=== PATIENT | female | born 1935 | race Caucasian/White ===

== ENCOUNTER 2016-06-09 15:35 | Inpatient (IN) | payer MEDICARE, MEDICAID ==
[2016-06-09 16:01] VITALS: BP 139/63
[2016-06-09] MEDS ORDERED: BIMATOPROST OP SCH (21:00)
[2016-06-09] MEDS: INSULIN ASPART SLIDING SCALE 100 UNITS/ML UNIT SUBQ SCH (21:01)
[2016-06-10] MEDS: Levothyroxine 0.1 Mg Tab PO SCH (06:50)
[2016-06-10] MEDS: INSULIN ASPART SLIDING SCALE 100 UNITS/ML UNIT SUBQ SCH ×4 (06:51→21:05)
[2016-06-10] MEDS ORDERED: Insulin Detemir 100 units/mL 10mL Vial SUBQ SCH ×2 (07:30→09:00)
[2016-06-10] MEDS: Pantoprazole 40 mg EC Tab PO SCH (08:41)
[2016-06-10] MEDS: Aspirin 81mg Chewable Tab PO SCH (08:41)
[2016-06-10] MEDS: Benztropine 1 MG TAB PO SCH ×2 (08:41→16:47)
[2016-06-10] MEDS: Insulin Detemir 100 units/mL 10mL Vial SUBQ SCH (08:49)
--- NOTE | 2016-06-11 02:24 | History & Physical ---
HISTORY OF PRESENT ILLNESS: The patient is an 80-year-old female known to me, [facility] CURRENT MEDICAL PROBLEMS: Include pneumonia, COPD, congestive heart failure, hypertension, diabetes mellitus, diabetic angiopathy and neuropathy, nephropathy, hypothyroidism, coronary artery disease, peptic ulcer disease, gastritis, arthritis, osteoporosis and glaucoma. SOCIAL HISTORY: No history of smoking or alcohol abuse. FAMILY HISTORY: Noncontributory. REVIEW OF SYSTEMS: The patient is on oxygen. The patient is short of breath. Cough is present. No nausea, no vomiting, no abdominal pain, no melena and no hematochezia. PHYSICAL EXAMINATION: GENERAL: Average female, in [id number] amount of respiratory distress. VITAL SIGNS: Include blood pressure 110/70, heart rate 80 and respiration rate of 18. SKIN: Showed no obvious cellulitis. HEENT: Normal conjunctivae. NECK: Supple. LUNGS: Show bilateral rhonchi as well as crepitation. No bronchial breathing. CARDIOVASCULAR: S1 and S2 is present. ABDOMEN: Soft, minimal epigastric tenderness. Bowel sounds appeared good. EXTREMITIES: Show arthritis. NEUROLOGIC: The patient has no focal motor deficit. Current medical diagnoses as I dictated above. MEDICATIONS: Current medicines include the patient has Lasix, Solu-Medrol 40 mg daily and sliding scale. The patient is on Levemir 20 units daily. The patient is on glaucoma eyedrops, Synthroid 100 mcg daily, lisinopril 2.5 mg daily, Glucophage 500 mg twice a day, Protonix 40 mg daily. The patient is on tramadol 50 mg 3 times a day and Restoril 30 mg p.o. at bedtime. Rest of the medicines as per psychiatrist. Thank you very much. JOB# [id number]
--- NOTE | 2016-06-11 06:01 | Psychosocial Evaluation ---
PHYSICIAN: Dr. Gutierrez. ____: Dr. Goldberg. CHIEF COMPLAINT: "Hearing voices telling her to hurt herself." HISTORY OF PRESENT ILLNESS: The patient is an 80-year-old female who was admitted to the hospital on a 5150 hold because of auditory hallucination and the patient has been hearing voices telling her to kill herself. The patient has been hearing these voices for the last 2 weeks. The patient also has been annoyed by the voices. She recognized that one of those voices is her brother. The patient does not want to kill herself, but because of the voices she has been anxious and nervous and afraid that she is going to hurt herself or kill herself. The patient has been frustrated and has been upset because of the voices. She also has feeling impairment and communication ____ through writing. PAST PSYCHIATRIC HISTORY: Not known, but the patient seems to have history of psychosis and treatment for the psychosis in the past. PAST MEDICAL HISTORY: The patient has history of congestive heart failure, COPD, diabetes mellitus that is noninsulin dependent and hypertension and hearing impairment. The patient also has history of pneumothorax. FAMILY PSYCHIATRIC HISTORY: Not known. CHEMICAL DEPENDENCY HISTORY: The patient denies. SOCIAL HISTORY: The patient does not drink alcohol or use any street drugs. She lives in [facility]. She has no known legal issues and no known history of abuse. ALLERGIES: No known allergies. MENTAL STATUS EXAMINATION: The patient appears her stated age. Deaf and communicates with her through writing. The patient admits to auditory hallucinations, but denies visual hallucinations or delusions. The patient denies suicidal or homicidal ideations. The patient is alert and oriented to time, place, person, and situation. Intact immediate, recent and the remote memories. Fair insight. Fair judgment. ASSESSMENT: PRIMARY DIAGNOSIS: Unspecified psychosis. MEDICAL DIAGNOSES: 1. Congestive heart failure. 2. Diabetes mellitus. TREATMENT PLAN: We will observe the patient closely. We will start individual as well as milieu psychotherapy. We will also evaluate the use of antipsychotic medications. ESTIMATED LENGTH OF STAY: 7-10 days. PATIENT'S STRENGTHS AND WEAKNESSES: The patient's strength is not clear at this time. Weaknesses, her ineffective coping and her psychosis. AFTER DISCHARGE PLANS: The patient will return to [facility] with plans for outpatient treatment and followup. CRITERIA FOR DISCHARGE: The patient will not be psychotic or suicidal and will stabilize on psychotropic medications and will establish outpatient treatment plans. [facility]# [id number]
[2016-06-11] MEDS: INSULIN ASPART SLIDING SCALE 100 UNITS/ML UNIT SUBQ SCH ×3 (06:36→20:46)
[2016-06-11] MEDS: Levothyroxine 0.1 Mg Tab PO SCH (06:47)
[2016-06-11] MEDS: Albuterol/Ipratropium Neb 3 ML AERS HHN PRN ×2 (09:03→14:06)
[2016-06-11] MEDS: Insulin Detemir 100 units/mL 10mL Vial SUBQ SCH (09:09)
[2016-06-11] MEDS: Aspirin 81mg Chewable Tab PO SCH (09:10)
[2016-06-11] MEDS: Pantoprazole 40 mg EC Tab PO SCH (09:10)
[2016-06-11] MEDS: Benztropine 1 MG TAB PO SCH ×2 (09:11→16:22)
--- NOTE | 2016-06-12 00:14 | Progress Notes ---
HISTORY OF PRESENT ILLNESS: An 80-year-old female admitted to the hospital on a 5150 hold, hallucinations, going to hurt herself, not jorge for safety. On [id number], the patient is still attesting to voices, still not jorge for safety, depressed and withdrawn, very distraught about the voices. Multiple medical problems including CHF, COPD, hearing impairment. The patient states she is sleeping fairly well, but remains hopeless and despairing. ASSESSMENT: The patient is still suicidal, still psychotic with voices. PLAN: We will continue to adjust medications. We will monitor closely for any undue side effects. Due to the severity of the patient's symptoms, she is not safe for a lower level of care at this time. JOB# [id number]
[2016-06-12] MEDS: INSULIN ASPART SLIDING SCALE 100 UNITS/ML UNIT SUBQ SCH ×6 (06:39→20:41)
[2016-06-12] MEDS: Levothyroxine 0.1 Mg Tab PO SCH (06:39)
[2016-06-12] MEDS: Pantoprazole 40 mg EC Tab PO SCH (08:41)
[2016-06-12] MEDS: Aspirin 81mg Chewable Tab PO SCH (08:41)
[2016-06-12] MEDS: Benztropine 1 MG TAB PO SCH ×2 (08:42→16:55)
[2016-06-12] MEDS: Insulin Detemir 100 units/mL 10mL Vial SUBQ SCH (16:09)
[2016-06-13] MEDS: Levothyroxine 0.1 Mg Tab PO SCH (06:33)
[2016-06-13] MEDS: INSULIN ASPART SLIDING SCALE 100 UNITS/ML UNIT SUBQ SCH ×4 (06:33→21:13)
[2016-06-13] MEDS: Benztropine 1 MG TAB PO SCH ×2 (09:45→16:55)
[2016-06-13] MEDS: Pantoprazole 40 mg EC Tab PO SCH (09:46)
[2016-06-13] MEDS: Aspirin 81mg Chewable Tab PO SCH (09:46)
[2016-06-13] MEDS: Insulin Detemir 100 units/mL 10mL Vial SUBQ SCH (09:58)
--- NOTE | 2016-06-13 20:38 | Progress Notes ---
SUBJECTIVE: The patient seen, chart reviewed, discussed with staff. The patient is continuing to attest to voices, stating that voices are commanding her. She still notes that she feels suicidal. She is not jorge for safety. The patient is depressed, overwhelmed, plagued and distressed by the hallucinations and voices that are commanding in nature. She remains withdrawn, depressed, requires prompting to eat, requires assistance with eating, isolative, withdrawn, despairing. ASSESSMENT: The patient is despairing, hopeless, still with hallucinations and psychosis, still suicidal. PLAN: Initiate low-dose Haldol. Continue Seroquel for now. JOB# [id number]
--- NOTE | 2016-06-14 02:27 | Progress Notes ---
SUBJECTIVE: This is an 80-year-old female, currently continuing to attest to hallucinations, still with voices, still not jorge for safety, still endorsing suicidal ideations, fantasizing about self of harm, still endorsing depressed mood. Pessimistic and negative thoughts. Sleeping fairly well, eating well. She is withdrawn, isolative, appears depressed, hopeless, and despairing. ASSESSMENT: The patient with continued voices, still despairing, hopeless. PLAN: We will continue to monitor given recent dose initiation of Haldol. We will continue with current dose and titrate over the next few days. [facility]# [id number]
[2016-06-14] MEDS: Levothyroxine 0.1 Mg Tab PO SCH (06:39)
[2016-06-14] MEDS: INSULIN ASPART SLIDING SCALE 100 UNITS/ML UNIT SUBQ SCH ×4 (06:39→20:51)
[2016-06-14] MEDS: Aspirin 81mg Chewable Tab PO SCH (10:00)
[2016-06-14] MEDS: Benztropine 1 MG TAB PO SCH ×2 (10:00→16:35)
[2016-06-14] MEDS: Pantoprazole 40 mg EC Tab PO SCH (10:00)
[2016-06-14] MEDS: Insulin Detemir 100 units/mL 10mL Vial SUBQ SCH (10:02)
--- NOTE | 2016-06-14 21:53 | Progress Notes ---
SUBJECTIVE: The patient was seen, chart reviewed, and discussed with staff. The patient remains symptomatic, states that she is, "very, very depressed, still attesting to voices, still distressed by the voices, hopeless, despairing and melancholic. The patient is noting, however, on a positive note that voices are going down "a little bit." Still attesting to suicidal thoughts, not jorge for safety. She remains depressed and withdrawn. Sleeping fairly well and eating well. ASSESSMENT: The patient remains symptomatic, still suicidal, still with voices, not jorge for safety. PLAN: Continue to monitor. We will adjust medications. The patient is not safe for a lower level of care. [facility]# [id number]
[2016-06-15] MEDS: INSULIN ASPART SLIDING SCALE 100 UNITS/ML UNIT SUBQ SCH ×4 (06:36→20:39)
[2016-06-15] MEDS: Levothyroxine 0.1 Mg Tab PO SCH (09:00)
[2016-06-15] MEDS: Aspirin 81mg Chewable Tab PO SCH (09:00)
[2016-06-15] MEDS: Benztropine 1 MG TAB PO SCH ×2 (09:00→16:24)
[2016-06-15] MEDS: Insulin Detemir 100 units/mL 10mL Vial SUBQ SCH (09:01)
[2016-06-15] MEDS: Pantoprazole 40 mg EC Tab PO SCH (09:05)
[2016-06-15] MEDS: Magnesium Hydroxide (MOM) 30 mL UDC PO PRN (18:00)
[2016-06-16] MEDS: INSULIN ASPART SLIDING SCALE 100 UNITS/ML UNIT SUBQ SCH ×4 (06:43→20:41)
[2016-06-16] MEDS: Levothyroxine 0.1 Mg Tab PO SCH (06:47)
[2016-06-16] MEDS: Aspirin 81mg Chewable Tab PO SCH (08:57)
[2016-06-16] MEDS: Pantoprazole 40 mg EC Tab PO SCH (08:58)
[2016-06-16] MEDS: Benztropine 1 MG TAB PO SCH ×2 (09:00→16:13)
[2016-06-16] MEDS: Insulin Detemir 100 units/mL 10mL Vial SUBQ SCH (09:01)
[2016-06-16] MEDS: Magnesium Hydroxide (MOM) 30 mL UDC PO PRN (10:36)
--- NOTE | 2016-06-16 12:03 | Progress Notes ---
SUBJECTIVE: The patient seen, chart reviewed, discussed with staff. The patient is still symptomatic, still depressed, attesting to voices, still suicidal, not jorge for safety. Still she is stating that she feels desperate, hopeless despairing. On a positive note, she is more interactive, more __directable__, somewhat brighter affect, sleeping well, eating with prompting. ASSESSMENT: The patient is still symptomatic, still endorsing strong hallucinations, still suicidal, still at high risk for self-harm, not jorge for safety. PLAN: Continue to titrate medications, given recent dose escalation of Haldol. We will continue to monitor. We will likely start to decrease Seroquel. [facility]# [id number] MTDD
--- NOTE | 2016-06-17 02:18 | Progress Notes ---
Case was discussed with staff of the patient and reviewed records. Covering for Dr. Gutierrez. This is an 80-year-old female who was admitted on 06/09/2016. She was hearing voices, telling her to harm herself. The patient has been hearing these voices for the past 2 weeks prior to admission. She has been annoyed by the voices. She recognized that one of that voice is of her brother. The patient does not want to kill herself, but because of the voices, she has been anxious, nervous and afraid that she is going to harm herself. The patient has been on Haldol 1 mg twice a day, Seroquel ____ mg at bedtime, ____ 30 mg at bedtime, trazodone 50 mg at bedtime with no side effects, no sedation, no nausea and she continues to be confused and paranoid. Reports that voices are not as prominent and no side effects with the medication, no sedation, no nausea and no extrapyramidal symptoms. I will continue to work with the patient in group therapy, milieu therapy and adjust medication as needed. JOB# [id number]
[2016-06-17] MEDS: INSULIN ASPART SLIDING SCALE 100 UNITS/ML UNIT SUBQ SCH ×4 (06:40→21:25)
[2016-06-17] MEDS: Levothyroxine 0.1 Mg Tab PO SCH (06:40)
[2016-06-17] MEDS: Pantoprazole 40 mg EC Tab PO SCH (08:57)
[2016-06-17] MEDS: Insulin Detemir 100 units/mL 10mL Vial SUBQ SCH (08:58)
[2016-06-17] MEDS: Benztropine 1 MG TAB PO SCH ×2 (09:01→16:24)
[2016-06-17] MEDS: Aspirin 81mg Chewable Tab PO SCH (09:01)
--- NOTE | 2016-06-18 05:56 | Progress Notes ---
Covering for Dr. Gutierrez. Case discussed with staff of the patient, reviewed records. The patient continues to be internally preoccupied, psychotic, continues to need redirection, continues to have poor insight ____ however, she is not isolating as much; she was able to go to the dining room today and participate. She is compliant with the medication with no side effects, no sedation, no nausea. She is also on antibiotic Cipro, ____ no side effects to the medication or sedation, no nausea, no extrapyramidal symptoms. We will continue with outpatient group therapy, milieu therapy, adjust the medication as needed. JOB# [id number]
[2016-06-18] MEDS: Levothyroxine 0.1 Mg Tab PO SCH (06:33)
[2016-06-18] MEDS: INSULIN ASPART SLIDING SCALE 100 UNITS/ML UNIT SUBQ SCH ×4 (06:38→20:34)
[2016-06-18] MEDS: Benztropine 1 MG TAB PO SCH ×2 (09:34→17:05)
[2016-06-18] MEDS: Pantoprazole 40 mg EC Tab PO SCH (09:34)
[2016-06-18] MEDS: Aspirin 81mg Chewable Tab PO SCH (09:35)
[2016-06-18] MEDS: Insulin Detemir 100 units/mL 10mL Vial SUBQ SCH (10:01)
[2016-06-19] MEDS: Levothyroxine 0.1 Mg Tab PO SCH (06:40)
[2016-06-19] MEDS: INSULIN ASPART SLIDING SCALE 100 UNITS/ML UNIT SUBQ SCH ×4 (06:43→20:38)
[2016-06-19] MEDS: Insulin Detemir 100 units/mL 10mL Vial SUBQ SCH (09:23)
[2016-06-19] MEDS: Aspirin 81mg Chewable Tab PO SCH (09:24)
[2016-06-19] MEDS: Pantoprazole 40 mg EC Tab PO SCH (09:25)
[2016-06-19] MEDS: Benztropine 1 MG TAB PO SCH ×2 (09:25→17:01)
--- NOTE | 2016-06-19 18:45 | Progress Notes ---
SUBJECTIVE: The patient seen, chart reviewed, discussed with staff. The patient is still endorsing thoughts of self harm, still depressed and withdrawn, melancholic, still attesting to voices. She does state that voices are." little bit better." The patient is endorsing thoughts of self harm, not jorge for safety, still talking about wanting to hurt herself. The patient with interrupted sleep. She is eating with prompting and help, unable to care for her basic needs at this time. ASSESSMENT: The patient remains symptomatic, still endorsing thoughts of self harm, still with episodes of hallucinations. PLAN: We will continue to monitor, we will give her Seroquel. We will increase and titrate medications to try to target her psychosis and mood. JOB# [id number]
[2016-06-20] MEDS: Levothyroxine 0.1 Mg Tab PO SCH (06:35)
[2016-06-20] MEDS: INSULIN ASPART SLIDING SCALE 100 UNITS/ML UNIT SUBQ SCH ×4 (06:45→21:22)
[2016-06-20] MEDS: Pantoprazole 40 mg EC Tab PO SCH (09:08)
[2016-06-20] MEDS: Aspirin 81mg Chewable Tab PO SCH (09:09)
[2016-06-20] MEDS: Benztropine 1 MG TAB PO SCH ×2 (09:12→16:16)
[2016-06-20] MEDS: Insulin Detemir 100 units/mL 10mL Vial SUBQ SCH (09:18)
--- NOTE | 2016-06-20 18:07 | Progress Notes ---
SUBJECTIVE: The patient seen, chart reviewed, discussed with staff. The patient continues to endorse suicidal ideations, still depressed, stating that she feels very depressed, hopeless, despairing. There may be a component of malingering here. It seems that the patient either has some secondly gain or perhaps a primary gain of being in the hospital. She for example is stating that the voices are constant 24 hours a day 7 days a week, which is highly unlikely to her psychotic compliant. She is ___more linear__ and engaged in exam. She does, however, verbalize that her mood is"a little better." She is requiring a lot of prompting for ADLs and help with feeding. Medications were reviewed. Labs were reviewed. No overt side effects. ASSESSMENT: The patient is still verbalizing SI, still verbalizing depression, still verbalizing voices. PLAN: We will continue to lower Seroquel. The patient is also complaining of some anxiety. We will initiate Ativan as needed. [facility]# [id number] [place]LL
[2016-06-21] MEDS: INSULIN ASPART SLIDING SCALE 100 UNITS/ML UNIT SUBQ SCH ×4 (06:48→21:23)
[2016-06-21] MEDS: Levothyroxine 0.1 Mg Tab PO SCH (06:51)
--- NOTE | 2016-06-21 06:55 | Progress Notes ---
SUBJECTIVE: The patient was seen, chart reviewed, and discussed with staff. The patient remains symptomatic, still endorsing suicidal ideations, still endorsing "voices." Still withdrawn and depressed. She does need help with a lot of ADLs. She needs help with eating for example. She is not jorge for safety. There are continued concerns about her ability to be safe outside of the hospital setting. ASSESSMENT: The patient remains symptomatic, suicidal, still with voices, not safe for discharge. We will continue to monitor. We will continue to titrate medications. She seems to be tolerating gradual dose reduction on Seroquel. [facility]# [id number]
[2016-06-21] MEDS: Pantoprazole 40 mg EC Tab PO SCH (09:08)
[2016-06-21] MEDS: Aspirin 81mg Chewable Tab PO SCH (09:08)
[2016-06-21] MEDS: Insulin Detemir 100 units/mL 10mL Vial SUBQ SCH (09:09)
[2016-06-21] MEDS: Benztropine 1 MG TAB PO SCH ×2 (09:09→16:33)
--- NOTE | 2016-06-22 03:32 | Progress Notes ---
Covering for Dr. Gutierrez. Case was discussed with staff of the patient, reviewed records. The patient is a well known case to me, I have seen her covering for Dr. Gutierrez. She stays in bed mostly, she continues to be symptomatic, continues to be suicidal. She continues to hear her voices, depressed. She needs help with her ADLs, unable to contract for her safety. She has been compliant with the medication with no side effects, no sedation, no nausea, no extrapyramidal symptoms. She is on Haldol 1.5 mg twice a day, she also is diabetic with hypothyroidism, hypertension. She is on Seroquel 175 mg at bedtime that was increased on 06/19, Restoril 30 mg at bedtime and trazodone 50 mg at bedtime with no side effects, no sedation, no nausea and we will continue to work with the patient in group therapy, milieu therapy, adjust medication as needed. JOB# [id number]
[2016-06-22] MEDS: INSULIN ASPART SLIDING SCALE 100 UNITS/ML UNIT SUBQ SCH ×4 (06:47→21:26)
[2016-06-22] MEDS: Levothyroxine 0.1 Mg Tab PO SCH (06:47)
[2016-06-22] MEDS: Pantoprazole 40 mg EC Tab PO SCH (08:41)
[2016-06-22] MEDS: Benztropine 1 MG TAB PO SCH ×2 (08:42→16:20)
[2016-06-22] MEDS: Aspirin 81mg Chewable Tab PO SCH (08:47)
[2016-06-22] MEDS: Insulin Detemir 100 units/mL 10mL Vial SUBQ SCH (08:56)
--- NOTE | 2016-06-23 02:31 | Progress Notes ---
Case discussed with staff of the patient, reviewed records. The patient continues to isolate herself. She is hard of hearing. Continues to be depressed, overwhelmed, suicidal, still at times hearing voices. Continues to have poor ADLs, isolating herself. No side effects with the medication, no sedation, no nausea. I will be increasing her Haldol to 2 mg twice a day and so far no side effects, no sedation, no nausea, no extrapyramidal symptoms. We will continue to work with patient in group therapy, milieu therapy, adjust the medication as needed. JOB# [id number]
[2016-06-23] MEDS: Levothyroxine 0.1 Mg Tab PO SCH (06:46)
[2016-06-23] MEDS: INSULIN ASPART SLIDING SCALE 100 UNITS/ML UNIT SUBQ SCH ×4 (06:47→21:57)
[2016-06-23] MEDS: Benztropine 1 MG TAB PO SCH ×2 (09:11→17:04)
[2016-06-23] MEDS: Pantoprazole 40 mg EC Tab PO SCH (09:11)
[2016-06-23] MEDS: Aspirin 81mg Chewable Tab PO SCH (09:11)
[2016-06-23] MEDS: Insulin Detemir 100 units/mL 10mL Vial SUBQ SCH (09:12)
[2016-06-23] MEDS: Escitalopram Oxalate 5 mg Tab PO SCH (09:23)
--- NOTE | 2016-06-23 23:58 | Progress Notes ---
SUBJECTIVE: The patient was seen, chart reviewed, and discussed with staff. The patient continues to attest the voices' hallucinations. She notes that these are decreasing. She is mainly complaining of a lot of anxiety, still attesting to suicidal ideations, suicidal fantasy, still attesting to thoughts that she does not want to live anymore, especially when the voices are escalating and her anxiety is "a lot." She asks for "tranquilizers." She states she gets highly anxious. Sleeping fairly well. Remains isolative. ASSESSMENT: The patient is still with psychosis, still with suicidal fantasies and high anxiety. PLAN: We will target anxiety at 10:00 a.m. and 3:00 p.m. We will adjust medications. [facility]# [id number]
[2016-06-24] MEDS: Levothyroxine 0.1 Mg Tab PO SCH (06:36)
[2016-06-24] MEDS: INSULIN ASPART SLIDING SCALE 100 UNITS/ML UNIT SUBQ SCH ×4 (06:37→20:44)
[2016-06-24] MEDS: Benztropine 1 MG TAB PO SCH ×2 (09:56→16:57)
[2016-06-24] MEDS: Pantoprazole 40 mg EC Tab PO SCH (09:56)
[2016-06-24] MEDS: Aspirin 81mg Chewable Tab PO SCH (09:56)
[2016-06-24] MEDS: Escitalopram Oxalate 5 mg Tab PO SCH (09:57)
[2016-06-24] MEDS: Insulin Detemir 100 units/mL 10mL Vial SUBQ SCH (09:58)
--- NOTE | 2016-06-25 03:30 | Progress Notes ---
SUBJECTIVE: The patient seen, chart reviewed and discussed with staff. The patient states her mood is mildly better, still eluding to some voices and hallucinations, not jorge for safety. On a positive note, she notes that her suicidal thoughts are decreasing. She is feeling mildly more hopeful. Ativan was initiated for 10 a.m. and 3 p.m. dosing to target her anxiety. The patient remains withdrawn, isolative and needing prompting for eating. ASSESSMENT: The patient was anxious, seems to be doing a little bit better, still concerns about safety, still with voices. PLAN: Continue to monitor. Continue medications. Monitor for side effects. JOB# [id number]
[2016-06-25] MEDS: INSULIN ASPART SLIDING SCALE 100 UNITS/ML UNIT SUBQ SCH ×4 (06:38→20:46)
[2016-06-25] MEDS: Levothyroxine 0.1 Mg Tab PO SCH (06:45)
[2016-06-25] MEDS: Escitalopram Oxalate 5 mg Tab PO SCH (09:17)
[2016-06-25] MEDS: Pantoprazole 40 mg EC Tab PO SCH (09:17)
[2016-06-25] MEDS: Benztropine 1 MG TAB PO SCH ×2 (09:18→17:36)
[2016-06-25] MEDS: Insulin Detemir 100 units/mL 10mL Vial SUBQ SCH (09:19)
[2016-06-25] MEDS: Aspirin 81mg Chewable Tab PO SCH (09:19)
--- NOTE | 2016-06-26 01:31 | Progress Notes ---
SUBJECTIVE: The patient seen, chart reviewed, discussed with staff. The patient is still attesting to depression. Still withdrawn. On a positive note, she is noting that her Suicidal ideations are decreasing, complains of poor sleep, lot of anxiety, still withdrawn and isolative. ASSESSMENT: The patient remains withdrawn, isolative, depressed, Suicidal ideations are decreasing, voices also "decreasing." Tolerant to medications, complaining of insomnia. PLAN: Continue to monitor. We will continue to adjust medications. [facility]# [id number]
[2016-06-26] MEDS: Levothyroxine 0.1 Mg Tab PO SCH (06:45)
[2016-06-26] MEDS: INSULIN ASPART SLIDING SCALE 100 UNITS/ML UNIT SUBQ SCH ×2 (06:46→13:05)
[2016-06-26] MEDS: Insulin Detemir 100 units/mL 10mL Vial SUBQ SCH (10:19)
[2016-06-26] MEDS: Escitalopram Oxalate 5 mg Tab PO SCH (10:20)
[2016-06-26] MEDS: Pantoprazole 40 mg EC Tab PO SCH (10:20)
[2016-06-26] MEDS: Aspirin 81mg Chewable Tab PO SCH (10:22)
[2016-06-26] MEDS: Benztropine 1 MG TAB PO SCH (10:23)
--- NOTE | 2016-06-26 18:40 | Discharge Summary ---
JUSTIFICATION FOR HOSPITALIZATION: Suicidal with voices. CHIEF COMPLAINT: "Voices, suicidal." HISTORY OF PRESENT ILLNESS: This is an 80-year-old female admitted to the hospital on a 5150 hold with auditory hallucinations. The patient went to [facility] because she was suicidal, not jorge for safety, hearing voices commanding her to hurt herself, highly anxious, nervous, not sleeping well. PAST PSYCHIATRIC HISTORY: Psychosis, depression. She has never attempted suicide. PAST MEDICAL HISTORY: CHF, COPD, and diabetes. FAMILY PSYCH HISTORY: Not known. SOCIAL HISTORY: The patient is living in [facility]. Daughter is involved. I did speak with the daughter. No drug use. ALLERGIES: None. MENTAL STATUS EXAMINATION: Please see full psych eval for details. PROVISIONAL DIAGNOSIS: Psychosis, unspecified; major depression, recurrent, severe with evidence of psychosis; anxiety, unspecified; and insomnia, unspecified. Under medical, as noted. HOSPITAL COURSE: After initial assessment, the patient was started on medications to target mood, voices. She has been on Seroquel; I began to taper the medications, started her on Haldol and titrated as tolerated, lower the Seroquel, tapered it, also started her on Lexapro, adjusted her doses of Ativan. Over the course of the hospitalization, she did improve, her mood improved, her affect improved, sleeping better, less anxious, and no longer suicidal. She was amenable to care by 06/26/2016. She was no longer suicidal, no longer meeting any acute inpatient criteria, and the voices are dissipated, abated, and stopped. CONDITION UPON DISCHARGE: Improved. Fair attention to ADLs, good eye contact. Speech, decreased content, low volume. Mood "better." Affect brighter. Thought process more linear. Thought content, no SI, no intent, and no plan. No HI, no intent, no plan. No auditory hallucinations. No visual hallucinations. No paranoia. Concentration was sustained. Insight and judgment improved x2. The patient is sleeping better, eating fairly well, participants hopeful, motivated for treatment. DISCHARGE DIAGNOSES: Major depression, recurrent, severe with evidence of psychosis; anxiety, unspecified; insomnia, unspecified. Under medical, as noted. Multiple medical problems per H and P. PROGNOSIS: The patient follows up with Psychiatry in the next 7-10 days. She takes her medications as directed and remains treatment compliant. Prognosis will improve, otherwise guarded. [facility]# [id number] [facility]
== END 2016-06-26 16:10 | disposition short-term general hospital (02) | DRG 885 ==
LOC: GERO 15:35
PROVIDERS: ADMIT Psychiatry & Neurology Psychiatry; ATTEND Psychiatry & Neurology Psychiatry
DX: F33.3 Major depressive disorder, recurrent, severe with psychotic symptoms (principal); I50.9 Heart failure, unspecified; I11.0 Hypertensive heart disease with heart failure; E11.40 Type 2 diabetes mellitus with diabetic neuropathy, unspecified; E11.21 Type 2 diabetes mellitus with diabetic nephropathy; J44.9 Chronic obstructive pulmonary disease, unspecified; F41.9 Anxiety disorder, unspecified; G47.00 Insomnia, unspecified; E11.51 Type 2 diabetes mellitus with diabetic peripheral angiopathy without gangrene; E03.9 Hypothyroidism, unspecified; I25.10 Atherosclerotic heart disease of native coronary artery without angina pectoris; K27.9 Peptic ulcer, site unspecified, unspecified as acute or chronic, without hemorrhage or perforation; K29.70 Gastritis, unspecified, without bleeding; M19.90 Unspecified osteoarthritis, unspecified site; M81.0 Age-related osteoporosis without current pathological fracture; H40.9 Unspecified glaucoma; Z79.4 Long term (current) use of insulin
CPT/HCPCS: 82948-90; 90899; 93005; 94760; J1815; Z7610